=== PATIENT | female | born 1940 | race Caucasian/White ===

== ENCOUNTER 2018-09-04 19:10 | Emergency (ER) | payer MEDICARE, OTHER ==
--- NOTE | 2018-09-04 19:33 | EDM.PDOC ---
ED HPI GENERAL MEDICAL PROBLEM - General Chief Complaint: General Stated Complaint: right hip pain Time Seen by Provider: 09/04/18 19:15 Source of Information: Reports: Patient, Family, RN History Limitations: Reports: No Limitations - History of Present Illness INITIAL COMMENTS - FREE TEXT/NARRATIVE: 77 yr female presents with right hip pain. States she was shopping today at [employer] and turned/twisted and felt a pop to the right hip and pain to the area. No pain with sitting, but 7/10 pain with standing. She does have a hx of osteoarthritis and low back pain. She is on long acting pain patch and is due to change this Tuesday. Home is in [place], near [place]. She and daughter are visiting a cemetery and putting escobedo on, in [facility] and planned to drive in the area for a couple of days, sight seeing. She is allergic to Morphine and has a few other allergies, but doesn't know what they are. She does have some kidney problems and doesn't take too much Ibuprofen, because of this. She did take Ibuprofen 800 mg tonight at 5pm, when this happened and states little relief. No bruising to area and no swelling noted. She is in the wheelchair now and can stand with assist and has a cane. Right Hip Pain Score (Numeric/FACES): 8 ED ROS GENERAL - Review of Systems Review Of Systems: See Below Constitutional: Reports: No Symptoms HEENT: Reports: Hearing Loss. Denies: Eye Pain, Vision Change Respiratory: Reports: No Symptoms Cardiovascular: Reports: No Symptoms GI/Abdominal: Reports: No Symptoms. Denies: Constipation, Diarrhea Musculoskeletal: Reports: Other (right hip pain) Skin: Reports: No Symptoms Neurological: Reports: No Symptoms. Denies: Dizziness, Headache, Tingling Psychiatric: Reports: No Symptoms ED EXAM, GENERAL - Physical Exam Exam: See Below Exam Limited By: No Limitations General Appearance: Alert, No Apparent Distress Ears: Hearing Loss Nose: Normal Inspection, Normal Mucosa Throat/Mouth: Normal Voice, No Airway Compromise Head: Atraumatic, Normocephalic Neck: Normal Inspection, Supple, Non-Tender, Full Range of Motion Respiratory/Chest: No Respiratory Distress, Lungs Clear, Normal Breath Sounds Cardiovascular: Normal Peripheral Pulses, Regular Rate, Rhythm, No Edema Peripheral Pulses: 2+: Radial (L), Radial (R), Dorsalis Pedis (L), Dorsalis Pedis (R) GI/Abdominal: Soft, Non-Tender (Female) Exam: Deferred Rectal (Female) Exam: Deferred Back Exam: Normal Inspection, Full Range of Motion Extremities: Other (right hip pain). No: Pedal Edema Neurological: Alert, Oriented, Normal Cognition Psychiatric: Normal Affect, Normal Mood Skin Exam: Warm, Intact, Normal Color. No: Ecchymosis, Increased Warmth, Petechiae Lymphatic: No Adenopathy Course - Vital Signs Last Recorded V/S: Last Vital Signs Temp 97.3 F 09/04/18 19:24 Pulse 78 09/04/18 19:24 Resp 18 09/04/18 19:24 BP 143/62 H 09/04/18 19:24 Pulse Ox 95 09/04/18 19:24 - Orders/Labs/Meds Orders: Active Orders 24 hr Category Date Time Status Hip Min 2V or 3V w Pelvis Rt [CR] Stat Exams 09/04/18 19:21 Taken - Re-Assessments/Exams Free Text/Narrative Re-Assessment/Exam: 09/04/181944 x-ray completed of hip and pelvis. No dislocation, no fracture, no mass noted. Counseled pt on muscle strain to right, posterior hip, reviewed x-ray with pt. Recommend Lidocaine patch 5% on 12 hour and off 12 hr to area of pain. Rx for 2 patch given to pt with instructions. Pt has allergies to MS , hydrocodone, Tramadol and Aleve. Recommend to limit Ibuprofen to no more than bid for short duration. Recommend use of Tylenol and limit to less than 3000 mg in 24 hour period. Pt has long acting pain patch on. Recommend ice/ heat to area as tolerated. Recommend to be up as tolerated and no long periods of sitting. Use cane and off load pain of the right hip. Return to PCP next week or sooner if pain worsens. Discharge in no acute distress to family and friend. Departure - Departure Time of Disposition: 20:10 Disposition: Home, Self-Care 01 Condition: Good Clinical Impression: Muscle strain, Pain - Discharge Information *PRESCRIPTION DRUG MONITORING PROGRAM REVIEWED*: Not Applicable *COPY OF PRESCRIPTION DRUG MONITORING REPORT IN PATIENT NOLVIA: Not Applicable Instructions: Hip Pain Referrals: PCP,None [Primary Care Provider] - Forms: ED Department Discharge Additional Instructions: Discharge home. Ibuprofen 800mg 1-2 times a day as needed for pain. Lidocaine patch to right hip tonight, leave on for 12 hours and then remove for 12 hours. 2 Lidocaine patches dispensed in the ER. Tylenol 650mg take in the morning, 325mg at lunch, and 650mg at night. Activity as tolerated. Follow up with your primary provider in 1 week. Call or return to the ER if you have any questions or concerns. - My Orders Last 24 Hours: My Active Orders 09/04/18 19:21 Hip Min 2V or 3V w Pelvis Rt [CR] Stat - Assessment/Plan Last 24 Hours: My Active Orders 09/04/18 19:21 Hip Min 2V or 3V w Pelvis Rt [CR] Stat Plan: x-ray completed of hip and pelvis. No dislocation, no fracture, no mass noted. Counseled pt on muscle strain to right, posterior hip, reviewed x-ray with pt. Recommend Lidocaine patch 5% on 12 hour and off 12 hr to area of pain. Rx for 2 patch given to pt with instructions. Pt has allergies to MS, hydrocodone , Tramadol and Aleve. Recommend to limit Ibuprofen to no more than bid for short duration. Recommend use of Tylenol and limit to less than 3000 mg in 24 hour period. Pt has long acting pain patch on. Recommend ice/heat to area as tolerated. Recommend to be up as tolerated and no long periods of sitting. Use cane and off load pain of the right hip. Return to PCP next week or sooner if pain worsens. Discharge in no acute distress to family and friend.
[2018-09-04] MEDS ORDERED: Lidocaine 5% 700 MG Patch ONE (20:00)
--- NOTE | 2018-09-05 08:07 | CR ---
DATE OF SERVICE: 09/04/18 CLINICAL DATA: hip pain PELVIS AND RIGHT HIP: No priors. There is diffuse osteopenia. There are mild osteoarthritic changes of both hip joints. The patient is status post internal fixation of L4, L5, and S1 with posterior metal rods and pedicle screws. No acute fracture or dislocation. No lytic or blastic bone lesions. [id number] [facility]
== END 2018-09-04 20:10 | disposition home or self-care (01) ==
LOC: LB.ED 19:10
DX: S76.011A Strain of muscle, fascia and tendon of right hip, initial encounter (principal); X50.9XXA Other and unspecified overexertion or strenuous movements or postures, initial encounter; Y92.512 Supermarket, store or market as the place of occurrence of the external cause
CPT/HCPCS: 73502; 99283; A9270